=== PATIENT | male | born 1930 | race Caucasian/White ===

== ENCOUNTER 2018-01-04 18:23 | Inpatient (IN) | payer MEDICARE ==
[~2018-01-04] VITALS: Ht 170.2 cm; Wt 67.6 kg
--- NOTE | ~2018-01-04 | PROC ---
[address] [address] PROCEDURE REPORT Name: JUAN RUSSO Room: [address] IN .R.#: [id number] Admission: 01/04/18 Attend Phys: Jovanny Alvarado Discharge: Date of : 34 Report #: [id number] THIS REPORT FOR: //name// For GI report, please see the Provation report in Perceptive 7 content. By: 07Medical Records Staff MARIA DOLORES /NITZA
[2018-01-04 18:52] VITALS: BP 204/108
[2018-01-04] MEDS ORDERED: LISINOPRIL40 MG PO (18:56)
[2018-01-04] MEDS ORDERED: NAUZENE TABLET1 EACH PO (18:56)
[2018-01-04] MEDS ORDERED: CHILDREN'S ASPI81 M1 PO (18:56)
[2018-01-04] MEDS ORDERED: RANITIDINE HCL75 MG PO (18:57)
[2018-01-04 19:20] LABS: URINE BILIRUBIN NEGATIVE (Negative); URINE BLOOD TRACE (Negative); URINE CLARITY CLEAR; URINE COLOR YELLOW; URINE GLUCOSE-RANDOM NEGATIVE (Negative); URINE KETONES NEGATIVE (Negative); URINE LEUKOCYTES-REFLEX NEGATIVE (Negative); URINE NITRITE-REFLEX NEGATIVE (Negative); URINE PROTEIN 2+ (Negative); URINE UROBILINOGEN 0.2 E.U./dl (0.2-1.0)
[2018-01-04 19:31] LABS: SQUAMOUS 0-3 Few /LPF (0-3); URINE RBC 0-2 Rare /HPF (0-2); URINE WBC-REFLEX None Seen /HPF (0-5)
[2018-01-04 19:32] LABS: BACTERIA-REFLEX None Seen /HPF (None Seen); CASTS None Seen /LPF (None Seen); CRYSTALS None Seen /LPF (None Seen); MUCUS None Seen strn/LPF (None Seen)
[2018-01-04 19:33] LABS: ABSOLUTE BASOPHILS 0.1 thou/uL (0.0-0.2); ABSOLUTE EOSINOPHILS 0.1 thou/uL (0.0-0.7); ABSOLUTE MONOCYTES 0.7 thou/uL (0.0-1.2); ABSOLUTE NEUTROPHILS 3.7 thou/uL (1.6-8.1); BASOPHILS 1.3 %; EOSINOPHILS 1.9 %; HEMATOCRIT 42.3 % (42.0-52.0); HEMOGLOBIN 14.1 gm/dL (14.0-18.0); LYMPHOCYTES 29.8 %; MCH 31.6 pg (26.0-34.0); MCHC 33.4 g/dL (28.0-37.0); MCV 94.7 fL (80.0-100.0); MONOCYTES 11.3 %; MPV 9.9 fl. (7.2-11.1); NUCLEATED RBCS 0 /100WBC; PLATELET COUNT* 140 thou/uL (150-400); POLYS 55.7 %; RBC 4.47 mil/uL (4.50-6.00); RDW-CV 14.5 % (10.5-14.5); WBC 6.6 thou/uL (4.0-11.0)
[2018-01-04 19:40] LABS: CALCIUM 8.8 mg/dL (8.5-10.1); CREATININE 1.5 mg/dL (0.6-1.3); POTASSIUM 4.2 mmol/L (3.5-5.1)
[2018-01-04 19:55] LABS: ALBUMIN 3.5 g/dL (3.4-5.0); TOTAL BILIRUBIN 0.3 mg/dL (<0.1-1.0); TOTAL PROTEIN 7.6 g/dL (6.4-8.2)
[2018-01-04 21:38] LABS: BE 3.1 mmol/L (-2 to +3); HCO3 29.7 mmol/L (22.0-26.0); PO2 104.2 mmHg (75.0-100.0)
[2018-01-04 21:43] LABS: PCO2 53.7 mmHg (35.0-45.0)
[2018-01-04 22:54] VITALS: BP 168/65
[2018-01-05 05:08] LABS: HEMATOCRIT 36.6 % (42.0-52.0); HEMOGLOBIN 12.3 gm/dL (14.0-18.0); MCH 31.9 pg (26.0-34.0); MCHC 33.7 g/dL (28.0-37.0); MCV 94.5 fL (80.0-100.0); MPV 10.2 fl. (7.2-11.1); RBC 3.87 mil/uL (4.50-6.00); RDW-CV 14.8 % (10.5-14.5); WBC 5.6 thou/uL (4.0-11.0)
[2018-01-05 05:23] LABS: ALBUMIN 2.8 g/dL (3.4-5.0); CALCIUM 8.1 mg/dL (8.5-10.1); CREATININE 1.4 mg/dL (0.6-1.3); POTASSIUM 4.4 mmol/L (3.5-5.1); TOTAL BILIRUBIN 0.4 mg/dL (<0.1-1.0); TOTAL PROTEIN 5.7 g/dL (6.4-8.2)
[2018-01-05 08:00] VITALS: BP 175/79
[2018-01-05 10:40] VITALS: BP 175/79
[2018-01-05 10:42] VITALS: BP 155/71
--- NOTE | 2018-01-05 12:51 | EKG ---
[place] [address] ELECTROCARDIOGRAM REPORT Name: JUAN RUSSO Room: [address] ADM IN [facility].#: [id number] Admission: 01/04/18 Attend Phys: Jovanny Alvarado Discharge: Date of : 32 Report #: [id number] THIS REPORT FOR: //name// [facility] ED Test Date: 2018-01-04 Test Time: 19:40:16 Pat Name: JUAN RUSSO Department: Room: [facility] Gender: M Engine Mechanic: : 1930 Requested By: Rita Luevano Order Number: [id number] MD: Erasmo Steve Measurements Intervals [place] Rate: 99 P: 55 MO: 133 QRS: -23 QRSD: 132 T: 53 QT: 411 QTc: 528 Interpretive Statements Sinus rhythm LAE, consider biatrial enlargement Right bundle branch block No previous ECG available for comparison Electronically Signed On 01-05-2018 12:50:50 HOT OILER by Erasmo Steve [email or web address] <ELECTRONICALLY SIGNED> By: Erasmo Steve MD, [facility] 01/05/18 1250 39 39 Erasmo Steve MD, FACC /EPI
[2018-01-05 13:00] VITALS: BP 196/85
[2018-01-05 16:38] VITALS: BP 197/75
[2018-01-05 18:00] VITALS: BP 154/67
[2018-01-06] VITALS: BP 129/63
[2018-01-06 08:00] VITALS: BP 160/70
[2018-01-06 09:00] VITALS: BP 160/70
[2018-01-06] MEDS ORDERED: PANTOPRAZOLE SO40 M1 PO (11:10)
[2018-01-06] MEDS ORDERED: LISINOPRIL40 MG PO (11:10)
[2018-01-06] MEDS ORDERED: NYSTATIN100000 UNI SW&SWALLOW (11:10)
--- NOTE | 2018-01-06 11:50 | S ---
[address] [address] SURGICAL PATH RPT PROCEDURE Name: JUAN KELLY Room: [address] IN M.R.#: [id number] Admission: 01/04/18 Date of : 34 Discharge: Report #: [id number] Path Case #: [id number] PATHOLOGY REPORT COLLECTION DATE: 01/05/2018 RECEIVED DATE: 01/05/2018 SUBMITTING PHYS: Dr. Mary Garzon OTHER PHYS: Dr. Modesto Pearson SPECIMEN(S) RECEIVED: A.Duodenum for duodenitis * * * * * * * * * * * * FINAL DIAGNOSIS: Biopsy duodenum: - Moderate, nonspecific, active duodenitis, negative for granulomas and dysplasia (see comment). COMMENT: In addition to several inflamed fragments of duodenal mucosa, there are several essentially normal duodenal mucosal fragments. (GEORGE:pit; 01/06/2018) PATHOLOGIST: Karlos Marlow M.D. REPORT ELECTRONICALLY SIGNED BY: Karlos Marlow M.D. DATE/TIME: 01/06/2018 11:50 * * * * * * * * * * * * GROSS PATHOLOGY: Received in formalin labeled "Juan Kelly, biopsy duodenum for duodenitis," are 5 segments of vernon soft tissue measuring 1.2 x 0.6 x 0.2 cm in aggregate dimensions and ranging from 0.2 to 0.3 cm in maximum dimension. The specimen is submitted entirely in cassette A1. (TSD; 01/05/2018) CLINICAL HISTORY: None provided INITIAL CPT CODE(S): A; 30523 Professional services performed by [facility] at [facility] [address] [place] [address] Technical services performed by [facility] at [address] [place] [address] [address], [place] [address]. [facility] [address] [facility] [place] [address] SURGICAL PATH RPT PROCEDURE Name: JUAN EKLLY Room: [address] IN ..#: [id number] Admission: 01/04/18 Date of : 34 Discharge: Report #: [id number] Path Case #: [id number] [facility] [address] [address] PHONE: [phone] DIRECTOR: Javi Perales M.D. * * * END OF REPORT * * *
[2018-01-06 12:47] VITALS: BP 160/70
--- NOTE | 2018-01-11 08:58 | CON ---
[address] [address] CONSULTATION Name: JUAN RUSSO Room: [address] IN M.R.#: [id number] Admission: 01/04/18 Attend Phys: Jovanny Alvarado Discharge: 01/06/18 Date of : 34 Report #: [id number] THIS REPORT FOR: //name// CC: SUE physician/PCP Modesto Pearson DICTATED BY: Kiara GARCIA DATE OF SERVICE: 01/05/2018 This is ABDIEL Camilo dictating in collaboration with Dr. Giovanni Zhao. REASON FOR CONSULTATION: Abdominal aortic aneurysm. HISTORY OF PRESENT ILLNESS: The patient is an 87-year-old male who presented to the Emergency Department with complaints of dizziness with recent falls. He reports he has been out of his blood pressure medications. He lives in [facility], has been here for several months visiting his daughter and was supposed to take a bus back home in the next few days. His family was concerned about his health and did not want him to travel home; therefore, advised him to come to the Emergency Department for further evaluation and treatment. He does report frequent dry heaves and nausea. He reports some abdominal soreness that he attributes to the dry heaves. He denies any back pain. He denies any claudication type symptoms with ambulation. A CT of the abdomen and pelvis was obtained, which demonstrated diffuse aneurysmal dilatation of the abdominal aorta and distal thoracic aorta as well as the common iliac arteries bilaterally. We have been asked to evaluate the patient and give our opinion regarding these findings. The patient reports he was aware that he had aneurysm, states that someone wanted to put a stent in it a couple of years ago, but they decided he did not need it at that time. He has not followed up, states that the [facility] and his insurance company back in [place] wanted him to travel an hour away for any followup and he did not want to do that. He currently denies any chest pain, shortness of air. PAST MEDICAL HISTORY: 1. Abdominal aortic aneurysm. 2. History of lung cancer. 3. Prostate cancer that he describes as "dormant." 4. Hypertension. 5. Hyperlipidemia. PAST SURGICAL HISTORY: He did undergo chemo and radiation for his lung cancer, but denies any surgical intervention for his lung cancer or prostate cancer. ALLERGIES: [place] [address] CONSULTATION Name: JUAN RUSSO Room: [address]#: [id number] Admission: 01/04/18 Attend Phys: Jovanny Alvarado Discharge: 01/06/18 Date of : 34 Report #: [id number] 1. HYDROCODONE. 2. ACETAMINOPHEN. HOME MEDICATIONS: 1. Nazine tablet 1 tablet daily as needed for nausea. 2. Zestril 40 mg daily. 3. Aspirin 81 mg daily. 4. Ranitidine 150 mg daily. FAMILY HISTORY: Reviewed, noncontributory due to his advanced age. SOCIAL HISTORY: He is a former smoker, denies any alcohol or illicit drug use. REVIEW OF SYSTEMS: A 12-point review of systems has been reviewed and is negative except for the above-mentioned in the history of present illness. PHYSICAL EXAMINATION: VITAL SIGNS: Temperature 36.7, heart rate 99, respiratory rate 16, blood pressure 196/85, oxygen saturation 90% on room air. GENERAL: He is alert and oriented, in no acute distress. HEENT: Head is normocephalic, atraumatic. He does wear dentures. NECK: Supple, without jugular venous distention or carotid bruit. HEART: Regular rate and rhythm. CHEST: Lungs are clear to auscultation anteriorly bilaterally. ABDOMEN: Soft, mild diffuse tenderness, not specifically tender over his aorta, no palpable mass appreciated. He has hypoactive bowel sounds. EXTREMITIES: Palpable bilateral radial, femoral, posterior tibial, and left dorsalis pedis pulses. He has a dopplerable right DP pulse. NEUROLOGIC: Alert and oriented with no focal neurologic deficits. LABORATORY DATA: Hemoglobin 12.3, hematocrit 36.6, white blood cell count 5.6, platelets 120. Sodium 142, potassium 4.4, chloride 105, CO2 of 33, BUN 24, creatinine 1.4, glucose is 87. ASSESSMENT AND PLAN: Distal thoracic and abdominal aortic aneurysm identified on CT. The patient is unsure of the diameter of his aneurysm at last known imaging. His aneurysm would require complex repair, is not currently symptomatic. Would not recommend any current surgical intervention. We are unable to obtain a CT angiogram due to his renal function. From a vascular surgery standpoint, once his blood pressure is under better control, he would be okay to travel home and follow up with Vascular Surgery in [place] home [place]. [address] [place] [address] CONSULTATION Name: JUAN RUSSO Room: [address] IN M.R.#: [id number] Admission: 01/04/18 Attend Phys: Jovanny Alvarado Discharge: 01/06/18 Date of : 32 Report #: [id number] We thank you for the opportunity to participate in the care of the patient. Please feel free to contact our office with any questions or concerns. <ELECTRONICALLY SIGNED> By: Ruben Ovalle DO 01/11/18 0858 1628 [id number] Zhao DO /nt
--- NOTE | 2018-01-12 14:51 | CON ---
[address] [address] CONSULTATION Name: JUAN RUSSO Room: [address] IN .R.#: [id number] Admission: 01/04/18 Attend Phys: Jovanny Alvarado Discharge: 01/06/18 Date of : 34 Report #: [id number] THIS REPORT FOR: //name// CC: SUE physician/PCP Modesto Pearson DATE OF SERVICE: 01/05/2018 REASON FOR CONSULT: Anorexia, dysphagia, and weight loss. HISTORY OF PRESENT ILLNESS: This is an 87-year-old male who was presented to emergency room with 2 weeks of nausea and dizziness. The patient reports that for the past 2 weeks, he has not been able to eat much as he has sores in his mouth and also has difficulty swallowing. He also reports that when he eats something, he will vomit. He denies any lower GI symptoms, he denies hematochezia, melena or change in stool habits and caliber. He has had 2 colonoscopies, last one was 11 years ago. The patient also has history of lung cancer, which has been treated with radiation. He has ongoing prostate CA. PAST MEDICAL HISTORY: Significant for history of lung CA, status post radiation, currently in remission; prostate cancer, hypertension, and GERD. ALLERGIES: Significant to MORPHINE and TYLENOL. MEDICATIONS: Please refer to hospital MAR. SOCIAL HISTORY: The patient lives at home, has remote history of alcohol use and reports that he was smoking until 3 years ago, but has quit. FAMILY HISTORY: Noncontributory. PHYSICAL EXAMINATION: VITAL SIGNS: Reveals blood pressure of 155/71, respirations 16, pulse 95, and temperature 98.0. LUNGS: Clear to auscultation bilaterally. CARDIOVASCULAR: Regular rate. ABDOMEN: Soft, nontender, and nondistended. Bowel sounds are positive. NEUROLOGIC: The patient is alert and oriented x3. LABS: Reveal sodium of 142, potassium 4.4, BUN is 24, creatinine 1.4, glucose is 87. Liver function tests are all within normal limits. Calcium is 8.1, albumin is 2.5. BNP is 5269. WBC is 5.6, hemoglobin 12.3 with platelet of 120. IMAGING: CT of abdomen and pelvis was obtained on admission. There was diffuse aneurysmal dilation of the abdominal aorta and distal thoracic aorta as well as iliac vessels. The pancreas and adrenal glands appear [place] [address] CONSULTATION Name: JUAN RUSSO Room: [address]#: [id number] Admission: 01/04/18 Attend Phys: Jovanny Alvarado Discharge: 01/06/18 Date of : 32 Report #: [id number] obstructive pattern of bowel noted in this study. Liver and gallbladder also looked normal. ASSESSMENT AND PLAN: The patient with history of gastroesophageal reflux disease who takes ranitidine and has been having problem with dysphagia, anorexia, poor appetite, nausea, and vomiting, which resulted in weight loss of 15 pounds. We will go ahead and perform an upper endoscopy and make further recommendation after the study. <ELECTRONICALLY SIGNED> By: Mary Garzon MD 01/12/18 1451 1148 [id number] Garzon MD /nt
--- NOTE | 2018-01-12 14:51 | CON ---
[address] [address] CONSULTATION Name: JUAN RUSSO Room: [address] IN .R.#: [id number] Admission: 01/04/18 Attend Phys: Jovanny Alvarado Discharge: 01/06/18 Date of : 32 Report #: [id number] THIS REPORT FOR: //name// CC: SUE physician/PCP Modesto Pearson DATE OF SERVICE: 01/05/2018 REASON FOR CONSULT: Nausea, vomiting, anorexia, weight loss, and dysphagia. HISTORY OF PRESENT ILLNESS: This is an 87-year-old male with history of lung CA who has been in remission. He also has prostate cancer. He presented to hospital with nausea, vomiting, anorexia, and dysphagia, which has been going on for the past several weeks. He believes that he has lost 15 pounds over the same period of time. He denies any lower GI symptoms as he denies hematochezia, melena, change in stool habits and caliber. PAST MEDICAL HISTORY: Significant for: 1. History of lung CA, currently in remission. 2. Prostate CA. 3. Hypertension. 4. GERD. ALLERGIES: Significant to HYDROCODONE and TYLENOL. MEDICATIONS: Please refer to hospital MAR. SOCIAL HISTORY: The patient denies tobacco use, but reports that he used to smoke up to 3 years ago. He also has a remote history of alcohol use, but currently does not drink any alcohol. FAMILY HISTORY: Noncontributory. PHYSICAL EXAMINATION: VITAL SIGNS: Reveals blood pressure of 155/71, respirations 16, pulse 95, and temperature 98.0. LUNGS: Clear. CARDIOVASCULAR: Regular. ABDOMEN: Soft, nontender, and nondistended. Bowel sounds are positive. NEUROLOGIC: The patient is alert and oriented x3. There is no focal neurologic deficit. LABS: Reveal sodium of 142, potassium 4.4, BUN is 24, creatinine 1.4, calcium 8.1, total bili is 0.4, ALT 17, and albumin is 2.8. WBC is 5.6 with hemoglobin of 12.3 and [place] 120[place] [address] CONSULTATION Name: JUAN RUSSO Room: [address]#: [id number] Admission: 01/04/18 Attend Phys: Jovanny Alvarado Discharge: 01/06/18 Date of : 32 Report #: [id number] IMAGING: CT of abdomen and pelvis was obtained on admission. This was significant for normal liver, pancreas, and gallbladder. Also, the loops of bowel appeared normal without any distention. There is diffuse dilation of the aneurysm of abdominal aorta and distal thoracic aorta extending to iliac vessels. ASSESSMENT AND PLAN: The patient with nausea, vomiting, dysphagia and history of gastroesophageal reflux disease for which he takes ranitidine. We will go ahead and perform an upper endoscopy to further evaluate his symptoms. We will make further recommendation once his upper endoscopy is complete. <ELECTRONICALLY SIGNED> By: Mary Garzon MD 01/12/18 1451 1205 [id number] Garzon MD /nt
== END 2018-01-06 13:15 | disposition home or self-care (01) | DRG 682 ==
LOC: M.ERS 18:23 → M.TBA-ER 20:50 → M.2W 21:02 → M.TBA-ER 21:02 → M.2W 23:26
PROVIDERS: Emergency Medicine; ADMIT Internal Medicine
PROC: 0DB98ZX Excision of Duodenum, Via Natural or Artificial Opening Endoscopic, Diagnostic (ICD-10-PCS; principal; 2018-01-05)
DX: N17.0 Acute kidney failure with tubular necrosis (principal); G93.41 Metabolic encephalopathy; E44.1 Mild protein-calorie malnutrition; K29.80 Duodenitis without bleeding; I71.4 Abdominal aortic aneurysm, without rupture; R13.10 Dysphagia, unspecified; R29.6 Repeated falls; I71.2 Thoracic aortic aneurysm, without rupture; K21.0 Gastro-esophageal reflux disease with esophagitis; K44.9 Diaphragmatic hernia without obstruction or gangrene; R62.7 Adult failure to thrive; I16.0 Hypertensive urgency; I72.3 Aneurysm of iliac artery; I72.2 Aneurysm of renal artery; K29.70 Gastritis, unspecified, without bleeding; N18.3 Chronic kidney disease, stage 3 (moderate); I12.9 Hypertensive chronic kidney disease with stage 1 through stage 4 chronic kidney disease, or unspecified chronic kidney disease; Z85.118 Personal history of other malignant neoplasm of bronchus and lung; Z92.3 Personal history of irradiation; Z92.21 Personal history of antineoplastic chemotherapy; Z79.899 Other long term (current) drug therapy; Z87.891 Personal history of nicotine dependence; Z79.82 Long term (current) use of aspirin; Z85.46 Personal history of malignant neoplasm of prostate; Z88.6 Allergy status to analgesic agent; Z88.1 Allergy status to other antibiotic agents